=== PATIENT | female | born 1945 | race Caucasian/White ===

== ENCOUNTER 2016-11-28 21:39 | Emergency (ER) | payer MEDICARE, MEDICAID ==
[~2016-11-28] VITALS: Ht 157.5 cm; Wt 56.7 kg
[2016-11-28] MEDS ORDERED: FURO20TA4 PO (21:55)
[2016-11-28] MEDS ORDERED: DONE10TA44 PO (21:55)
[2016-11-28] MEDS ORDERED: QUET25TA PO (21:55)
[2016-11-28] MEDS ORDERED: OMEP40CA37 PO (21:55)
[2016-11-28] MEDS ORDERED: LEVE500T20 PO (21:55)
[2016-11-28] MEDS ORDERED: METO25TA6 PO (21:55)
[2016-11-28] MEDS ORDERED: DIVA500T7 PO (21:55)
[2016-11-28] MEDS ORDERED: AZIT250T6 PO (21:55)
[2016-11-28] MEDS ORDERED: CLON0.5T4 PO (21:55)
[2016-11-28 22:46] LABS: BASOPHILS % (AUTO) 0.3 % (0.0-2.0); EOSINOPHILS % (AUTO) 0.3 % (0.0-6.0); HEMATOCRIT 30 % (33-45); HEMOGLOBIN 9.9 g/dL (11.5-14.8); LYMPHOCYTES # (AUTO) 1.9 /CMM (0.8-4.8); LYMPHOCYTES % (AUTO) 36.7 % (20.0-44.0); MEAN CORPUSCULAR HEMOGLOBIN 35 PG (26.0-33.0); MEAN CORPUSCULAR HGB CONC 33 g/dl (31.0-36.0); MEAN CORPUSCULAR VOLUME 108 fL (82-100); MONOCYTES % (AUTO) 19.9 % (2.0-12.0); NEUTROPHILS # (AUTO) 2.2 /CMM (1.8-8.9); NEUTROPHILS % (AUTO) 42.8 % (43.0-81.0); PLATELET COUNT (AUTO) 106 /CMM (150-450); RDW COEFFICIENT OF VARIATION 15.8 (11.5-15.0); RED BLOOD CELL COUNT(AUTO) 2.81 MIL/uL (4.0-5.2); WHITE BLOOD COUNT (AUTO) 5.2 K/uL (4.3-11.0)
[2016-11-28 22:54] LABS: APPEARANCE,URINE SL CLOUDY (CLEAR); BILIRUBIN,URINE NEGATIVE (NEGATIVE); BLOOD, URINE NEGATIVE Ery/uL (NEGATIVE); COLOR,URINE YELLOW (YELLOW); KETONES,URINE NEGATIVE (NEGATIVE); LEUKOCYTE ESTERASE ,URINE TRACE (NEGATIVE); NITRITE, URINE POSITIVE (NEGATIVE); PROTEIN,URINE TRACE mg/dl (NEGATIVE); UGLUCOSE NEGATIVE (NEGATIVE); UROBILINOGEN,URINE 0.2 EU/dL (0.2)
[2016-11-28 22:55] LABS: SERUM AMMONIA 29 umol/L (11-32)
[2016-11-28 22:57] LABS: CALCIUM, SERUM 8.2 mg/dL (8.5-10.1); CARBON DIOXIDE 30 mmol/L (21-32); CHLORIDE 110 mmol/L (98-107); CREATININE 0.8 mg/dL (0.6-1.3); GFR 71 mL/min (>60); GLUCOSE 99 mg/dL (74-106); POTASSIUM 4.3 mmol/L (3.5-5.1); SODIUM SERUM 144 mmol/L (136-145); UREA NITROGEN, BLOOD 21 mg/dL (7-18)
[2016-11-28 22:58] LABS: RBC,URINE 0-2 /HPF (0-2)
[2016-11-28 22:59] LABS: ADD URINE CULTURE YES; BACTERIA,URINE 3+ /HPF (None Seen); MUCUS,URINE Moderate /LPF (None Seen); SQUAMOUS EPITHELIAL CELL,UR Few /HPF (None Seen); WBC,URINE 20-25 /HPF (0-3)
[2016-11-28 23:00] LABS: INR 0.97 (0.87-1.13); PROTHROMBIN TIME 10.4 SECS (9.5-12.7)
[2016-11-28 23:13] LABS: CANNABINOID, URINE NEGATIVE (NEGATIVE); PHENCYCLIDINE SCREEN,URINE NEGATIVE (NEGATIVE)
[2016-11-28 23:22] LABS: ACETAMINOPHEN 0 ug/ml (10-30); ALANINE AMINOTRANSFERASE 14 U/L (12-78); ALBUMIN 2.8 g/dL (3.4-5.0); ALKALINE PHOSPHATASE 65 U/L (46-116); ASPARTATE AMINOTRANSFERASE 15 U/L (15-37); BILIRUBIN,TOTAL 0.2 mg/dL (0.2-1.0); TROPONIN I < 0.017 ng/mL (0.00-0.056)
[2016-11-28] MEDS ORDERED: LEVOFLOXACIN (500MG) 500 MG TABLET ONE (23:52)
[2016-11-29] MEDS: LEVOFLOXACIN (500MG) 500 MG TABLET PO ONE (00:02)
[2016-11-29 00:36] VITALS: BP 113/72
[2016-11-29 00:36] LABS: LYMPHOCYTES % (MANUAL) 50 % (16-48); MONOCYTES % (MANUAL) 18 % (0-11.0); NEUTROPHILS % (MANUAL) 32 (42-76); PLATELET ESTIMATE DECREASED
[2016-11-29 00:37] LABS: ANISOCYTOSIS 1+
== END 2016-11-29 00:38 | disposition home or self-care (01) ==
LOC: ER 21:45
DX: N30.90 Cystitis, unspecified without hematuria (principal); F03.90 Unspecified dementia, unspecified severity, without behavioral disturbance, psychotic disturbance, mood disturbance, and anxiety; G40.909 Epilepsy, unspecified, not intractable, without status epilepticus; I48.91 Unspecified atrial fibrillation; I63.9 Cerebral infarction, unspecified; J90 Pleural effusion, not elsewhere classified; R41.82 Altered mental status, unspecified
CPT/HCPCS: 36415; 70450; 71010; 80048; 80076; 80164; 80305; 80329; 81001; 82140; 82962; 84484; 85025; 85730; 87077; 87086; 87186; 93005; 99285; A4606; G0480; 81000-TC; G6039-TC; Z7610

== ENCOUNTER 2017-09-29 02:52 | Inpatient (IN) | payer MEDICARE, MEDICAID ==
[~2017-09-29] VITALS: Ht 162.6 cm; Wt 73.6 kg
[~2017-09-29 02:52] MED LIST: AZIT250T13 PO; CLON0.5T4 PO; DIVA500T7 PO; DONE10TA44 PO; FURO20TA4 PO; LEVE500T20 PO; METO25TA6 PO; OMEP40CA37 PO; QUET25TA PO
[2017-09-29] MEDS ORDERED: ACETAMINOPHEN 650 MG/20.3 ML UDC ONE (03:05)
[2017-09-29] MEDS ORDERED: CEFTRIAXONE 1 G in IV D5W 50 ML IV ONE (03:30)
[2017-09-29] MEDS ORDERED: CEFTRIAXONE 1GM BAG (ER ONLY) 50 ML IV ONE (03:50)
[2017-09-29 03:57] LABS: BASOPHILS % (AUTO) 0.1 % (0.0-2.0); HEMATOCRIT 32 % (33-45); HEMOGLOBIN 10.2 g/dL (11.5-14.8); LYMPHOCYTES # (AUTO) 0.6 /CMM (0.8-4.8); LYMPHOCYTES % (AUTO) 6.6 % (20.0-44.0); MEAN CORPUSCULAR HEMOGLOBIN 35 PG (26.0-33.0); MEAN CORPUSCULAR HGB CONC 32 g/dl (31.0-36.0); MEAN CORPUSCULAR VOLUME 108 fL (82-100); MONOCYTES # (AUTO) 2.3 /CMM (0.1-1.30); NEUTROPHILS # (AUTO) 6.3 /CMM (1.8-8.9); NEUTROPHILS % (AUTO) 68.3 % (43.0-81.0); PLATELET COUNT (AUTO) 67 /CMM (150-450); RDW COEFFICIENT OF VARIATION 17.1 (11.5-15.0); RED BLOOD CELL COUNT(AUTO) 2.95 MIL/uL (4.0-5.2); WHITE BLOOD COUNT (AUTO) 9.3 K/uL (4.3-11.0)
[2017-09-29] MEDS ORDERED: ACETAMINOPHEN 650 MG/SUPP.RECT RC ONE ×2 (04:00→04:04)
[2017-09-29 04:06] LABS: CALCIUM, SERUM 8.6 mg/dL (8.5-10.1); CARBON DIOXIDE 27 mmol/L (21-32); CHLORIDE 116 mmol/L (98-107); CREATININE 1.4 mg/dL (0.6-1.3); GLUCOSE 133 mg/dL (74-106); SODIUM SERUM 153 mmol/L (136-145); UREA NITROGEN, BLOOD 39 mg/dL (7-18)
[2017-09-29 04:09] LABS: INR 1.08 (0.87-1.13)
[2017-09-29 04:16] LABS: TROPONIN I 0.725 ng/mL (0.00-0.056)
[2017-09-29 04:20] LABS: ALANINE AMINOTRANSFERASE 20 U/L (12-78); ALBUMIN 2.8 g/dL (3.4-5.0); ALKALINE PHOSPHATASE 73 U/L (46-116); ASPARTATE AMINOTRANSFERASE 40 U/L (15-37); B-TYPE NATRIURETIC PEPTIDE 19143 PG/ML (0-125); BILIRUBIN,DIRECT 0.1 mg/dL (0.0-0.2); BILIRUBIN,TOTAL 0.6 mg/dL (0.2-1.0); TOTAL PROTEIN, SERUM 7.6 g/dL (6.4-8.2)
[2017-09-29] MEDS ORDERED: LEVOFLOXACIN 750 MG /D5W 150ML 150 ML IV ONE (04:29)
[2017-09-29] MEDS ORDERED: LEVOFLOXACIN 750 MG /D5W 150ML PIGGYBACK IV ONE (04:30)
[2017-09-29] MEDS ORDERED: ACETAMINOPHEN 650 MG/20.3 ML UDC PO ONE (04:30)
[2017-09-29 04:31] LABS: BAND % (MANUAL) 2 % (0.0-5.0); LYMPHOCYTES % (MANUAL) 10 % (16-48); MONOCYTES % (MANUAL) 21 % (0-11.0); NEUTROPHILS % (MANUAL) 67 (42-76)
[2017-09-29] MEDS ORDERED: ASPIRIN 300 MG/SUPP.RECT RC ONE ×2 (05:19→05:30)
[2017-09-29] MEDS ORDERED: IV NS 0.9% 1,000 ML BAG IV ONE (05:30)
[2017-09-29 05:31] LABS: APPEARANCE,URINE CLOUDY (CLEAR); BILIRUBIN,URINE 1+ (NEGATIVE); BLOOD, URINE 3+ Ery/uL (NEGATIVE); COLOR,URINE DARK YELLO (YELLOW); KETONES,URINE TRACE (NEGATIVE); LEUKOCYTE ESTERASE ,URINE 2+ (NEGATIVE); NITRITE, URINE POSITIVE (NEGATIVE); PROTEIN,URINE 3+ mg/dl (NEGATIVE); UGLUCOSE NEGATIVE (NEGATIVE); UROBILINOGEN,URINE 0.2 EU/dL (0.2)
[2017-09-29 05:37] LABS: BACTERIA,URINE Few /HPF (None Seen); SQUAMOUS EPITHELIAL CELL,UR Few /HPF (None Seen); WBC,URINE 21-50 /HPF (0-3)
[2017-09-29 07:10] VITALS: BP 115/74
[2017-09-29] MEDS ORDERED: ACETAMINOPHEN 650 MG/SUPP.RECT RC PRN (07:30)
[2017-09-29] MEDS ORDERED: Z GUARD REMEDY 2 OZ OINT TP PRN (07:30)
[2017-09-29] MEDS ORDERED: IV D5/ 0.9% NACL 1,000 ML IV PRN (07:30)
[2017-09-29] MEDS ORDERED: ALBUTEROL FS 2.5 MG/3 ML VIAL.NEB NEB PRN (07:30)
[2017-09-29] MEDS ORDERED: ENOXAPARIN SODIUM 30 MG/0.3 ML DISP.SYRIN SQ SCH (07:30)
[2017-09-29] MEDS ORDERED: MORPHINE SULFATE INJ 4 MG/ML DISP.SYRIN IV PRN (07:30)
[2017-09-29] MEDS ORDERED: ONDANSETRON HCL/PF 4 MG/2 ML VIAL IVP PRN (07:30)
[2017-09-29] MEDS ORDERED: DIVA125T3 PO (07:56)
[2017-09-29] MEDS ORDERED: GUAI118L27 PO (07:56)
[2017-09-29 08:00] VITALS: BP 124/62
[2017-09-29 08:43] LABS: BASOPHILS % (AUTO) 0.1 % (0.0-2.0); HEMATOCRIT 28 % (33-45); HEMOGLOBIN 9.1 g/dL (11.5-14.8); LYMPHOCYTES # (AUTO) 0.8 /CMM (0.8-4.8); MEAN CORPUSCULAR HEMOGLOBIN 35 PG (26.0-33.0); MEAN CORPUSCULAR HGB CONC 33 g/dl (31.0-36.0); MEAN CORPUSCULAR VOLUME 108 fL (82-100); MONOCYTES # (AUTO) 1.3 /CMM (0.1-1.30); MONOCYTES % (AUTO) 18.3 % (2.0-12.0); NEUTROPHILS # (AUTO) 5.1 /CMM (1.8-8.9); NEUTROPHILS % (AUTO) 70.6 % (43.0-81.0); PLATELET COUNT (AUTO) 58 /CMM (150-450); RDW COEFFICIENT OF VARIATION 17.2 (11.5-15.0); RED BLOOD CELL COUNT(AUTO) 2.59 MIL/uL (4.0-5.2); WHITE BLOOD COUNT (AUTO) 7.2 K/uL (4.3-11.0)
[2017-09-29 08:45] LABS: CARBON DIOXIDE 29 mmol/L (21-32); CHLORIDE 118 mmol/L (98-107); CREATININE 1.3 mg/dL (0.6-1.3); GLUCOSE 104 mg/dL (74-106); POTASSIUM 4.1 mmol/L (3.5-5.1); SODIUM SERUM 154 mmol/L (136-145); UREA NITROGEN, BLOOD 38 mg/dL (7-18)
[2017-09-29 08:56] LABS: ALANINE AMINOTRANSFERASE 17 U/L (12-78); ALBUMIN 2.2 g/dL (3.4-5.0); ALKALINE PHOSPHATASE 61 U/L (46-116); ASPARTATE AMINOTRANSFERASE 35 U/L (15-37); BILIRUBIN,TOTAL 0.3 mg/dL (0.2-1.0); MAGNESIUM 2.1 mg/dL (1.8-2.4); PHOSPHORUS 3.2 mg/dL (2.5-4.9)
[2017-09-29 08:57] LABS: TOTAL PROTEIN, SERUM 6.7 g/dL (6.4-8.2)
[2017-09-29] MEDS ORDERED: FUROSEMIDE 20 MG/2 ML VIAL IV SCH (09:00)
[2017-09-29] MEDS: LEVETIRACETAM (500MG) 500 MG in IV NS 0.9% 100 ML IV SCH ×2 (09:14→21:34)
[2017-09-29] MEDS: VANCOMYCIN 1 GM in IV D5W 250 ML IV SCH (10:11)
[2017-09-29] MEDS: FAMOTIDINE/PF INJ 20 MG/2 ML VIAL IV SCH (10:12)
[2017-09-29 11:17] LABS: BAND % (MANUAL) 4 % (0.0-5.0); LYMPHOCYTES % (MANUAL) 12 % (16-48); MONOCYTES % (MANUAL) 20 % (0-11.0); NEUTROPHILS % (MANUAL) 64 (42-76)
[2017-09-29 11:57] LABS: TROPONIN I 0.429 ng/mL (0.00-0.056)
[2017-09-29 12:00] VITALS: BP 118/72
[2017-09-29] MEDS ORDERED: PIPERACILLIN /TAZOBACTAM 3.375 G in IV D5W 100 ML IV SCH (12:00)
[2017-09-29] MEDS: Potassium Chloride 10 MEQ in IV D5W 1,000 ML IV SCH (12:40)
[2017-09-29] MEDS: PIPERACILLIN /TAZOBACTAM 3.375 G in IV NS 0.9% 50 ML IV SCH ×2 (13:26→17:09)
[2017-09-29] MEDS ORDERED: FEE PK DOSING 1 MIN EA MC ONE (14:10)
[2017-09-29 16:00] VITALS: BP 122/53
[2017-09-29 20:00] VITALS: BP 106/61
[2017-09-30] VITALS: BP 137/53
[2017-09-30] MEDS: PIPERACILLIN /TAZOBACTAM 3.375 G in IV NS 0.9% 50 ML IV SCH ×4 (00:02→17:25)
[2017-09-30] MEDS: Potassium Chloride 10 MEQ in IV D5W 1,000 ML IV SCH (03:47)
[2017-09-30] MEDS: VANCOMYCIN 1 GM in IV D5W 250 ML IV SCH ×2 (03:47→23:06)
[2017-09-30 04:00] VITALS: BP 99/60
[2017-09-30] MEDS: LEVOFLOXACIN 250 MG /D5W 50 ML 250 MG in PREMIX 1 EA IV SCH (06:49)
[2017-09-30 06:57] LABS: CALCIUM, SERUM 7.3 mg/dL (8.5-10.1); CARBON DIOXIDE 25 mmol/L (21-32); CHLORIDE 109 mmol/L (98-107); CREATININE 1.1 mg/dL (0.6-1.3); GLUCOSE 131 mg/dL (74-106); POTASSIUM 3.5 mmol/L (3.5-5.1); SODIUM SERUM 144 mmol/L (136-145); UREA NITROGEN, BLOOD 26 mg/dL (7-18)
[2017-09-30 08:00] VITALS: BP 104/62
[2017-09-30] MEDS: FAMOTIDINE/PF INJ 20 MG/2 ML VIAL IV SCH (08:34)
[2017-09-30] MEDS: ASPIRIN 300 MG/SUPP.RECT RC SCH (08:34)
[2017-09-30] MEDS: LEVETIRACETAM (500MG) 500 MG in IV NS 0.9% 100 ML IV SCH ×2 (08:34→21:36)
[2017-09-30] MEDS ORDERED: Potassium Chloride 10 MEQ in IV D5W 1,000 ML IV PRN (10:14)
[2017-09-30 12:00] VITALS: BP 99/60
[2017-09-30] MEDS ORDERED: clonazePAM 0.5 MG TABLET PO PRN (13:00)
[2017-09-30] MEDS: DIVALPROEX SODIUM 125 MG TABLET.DR PO SCH ×2 (13:16→16:45)
[2017-09-30] MEDS: QUETIAPINE FUMARATE 25 MG TABLET PO SCH ×2 (13:16→16:45)
[2017-09-30 16:00] VITALS: BP 108/55
[2017-09-30] MEDS: LACTOBACILLUS RHAMNOSUS GG 1 EACH CAP.SPRINK PO SCH (16:45)
[2017-09-30] MEDS: MUPIROCIN OINT 2% 22 GM TUBE SCH ×2 (16:47→21:39)
[2017-09-30 20:00] VITALS: BP 117/70
[2017-10-01] VITALS: BP 112/76
[2017-10-01] MEDS: PIPERACILLIN /TAZOBACTAM 3.375 G in IV NS 0.9% 50 ML IV SCH ×3 (00:25→11:45)
[2017-10-01 04:00] VITALS: BP 116/60
[2017-10-01 07:58] LABS: BASOPHILS % (AUTO) 0.2 % (0.0-2.0); EOSINOPHILS % (AUTO) 0.1 % (0.0-6.0); HEMATOCRIT 27 % (33-45); LYMPHOCYTES # (AUTO) 0.9 /CMM (0.8-4.8); LYMPHOCYTES % (AUTO) 11.6 % (20.0-44.0); MEAN CORPUSCULAR HEMOGLOBIN 35 PG (26.0-33.0); MEAN CORPUSCULAR HGB CONC 33 g/dl (31.0-36.0); MEAN CORPUSCULAR VOLUME 107 fL (82-100); MONOCYTES # (AUTO) 1.6 /CMM (0.1-1.30); MONOCYTES % (AUTO) 20.8 % (2.0-12.0); NEUTROPHILS # (AUTO) 5.2 /CMM (1.8-8.9); NEUTROPHILS % (AUTO) 67.3 % (43.0-81.0); PLATELET COUNT (AUTO) 51 /CMM (150-450); RDW COEFFICIENT OF VARIATION 16.7 (11.5-15.0); RED BLOOD CELL COUNT(AUTO) 2.58 MIL/uL (4.0-5.2); WHITE BLOOD COUNT (AUTO) 7.7 K/uL (4.3-11.0)
[2017-10-01 08:00] VITALS: BP 98/57
[2017-10-01 08:10] LABS: CALCIUM, SERUM 7.5 mg/dL (8.5-10.1); CARBON DIOXIDE 27 mmol/L (21-32); CHLORIDE 106 mmol/L (98-107); GLUCOSE 110 mg/dL (74-106); MAGNESIUM 1.8 mg/dL (1.8-2.4); POTASSIUM 3.6 mmol/L (3.5-5.1); SODIUM SERUM 141 mmol/L (136-145); UREA NITROGEN, BLOOD 15 mg/dL (7-18)
[2017-10-01] MEDS: LEVETIRACETAM SOL (5 ML) 100 MG/ML UDC PO SCH ×2 (08:54→22:09)
[2017-10-01] MEDS: LEVOFLOXACIN 250 MG /D5W 50 ML 250 MG in PREMIX 1 EA IV SCH (08:54)
[2017-10-01] MEDS: DIVALPROEX SODIUM 125 MG TABLET.DR PO SCH ×3 (08:55→17:30)
[2017-10-01] MEDS: LACTOBACILLUS RHAMNOSUS GG 1 EACH CAP.SPRINK PO SCH ×2 (08:55→17:29)
[2017-10-01] MEDS: QUETIAPINE FUMARATE 25 MG TABLET PO SCH ×2 (08:55→17:30)
[2017-10-01] MEDS: ASPIRIN 300 MG/SUPP.RECT RC SCH (08:55)
[2017-10-01] MEDS: MUPIROCIN OINT 2% 22 GM TUBE SCH ×2 (08:56→22:08)
[2017-10-01 09:18] LABS: LYMPHOCYTES % (MANUAL) 11 % (16-48); MONOCYTES % (MANUAL) 25 % (0-11.0); NEUTROPHILS % (MANUAL) 64 (42-76)
[2017-10-01] MEDS: FAMOTIDINE/PF INJ 20 MG/2 ML VIAL IV SCH (09:53)
[2017-10-01 12:00] VITALS: BP 104/56
[2017-10-01 16:00] VITALS: BP 126/51
[2017-10-01 20:00] VITALS: BP 120/58
[2017-10-02] VITALS: BP 119/54
[2017-10-02 04:00] VITALS: BP 103/50
[2017-10-02] MEDS: LEVOFLOXACIN 250 MG /D5W 50 ML 250 MG in PREMIX 1 EA IV SCH (06:41)
[2017-10-02 07:38] LABS: CALCIUM, SERUM 7.9 mg/dL (8.5-10.1); CARBON DIOXIDE 27 mmol/L (21-32); CHLORIDE 110 mmol/L (98-107); CREATININE 0.9 mg/dL (0.6-1.3); GLUCOSE 98 mg/dL (74-106); POTASSIUM 4.1 mmol/L (3.5-5.1); SODIUM SERUM 145 mmol/L (136-145); UREA NITROGEN, BLOOD 14 mg/dL (7-18)
[2017-10-02 08:00] VITALS: BP 103/53
[2017-10-02] MEDS: FAMOTIDINE/PF INJ 20 MG/2 ML VIAL IV SCH (09:38)
[2017-10-02] MEDS: MUPIROCIN OINT 2% 22 GM TUBE SCH ×2 (09:38→22:38)
[2017-10-02] MEDS: LACTOBACILLUS RHAMNOSUS GG 1 EACH CAP.SPRINK PO SCH ×2 (09:39→17:52)
[2017-10-02] MEDS: DIVALPROEX SODIUM 125 MG TABLET.DR PO SCH ×3 (09:39→17:53)
[2017-10-02] MEDS: QUETIAPINE FUMARATE 25 MG TABLET PO SCH ×2 (09:39→17:53)
[2017-10-02] MEDS: LEVETIRACETAM SOL (5 ML) 100 MG/ML UDC PO SCH ×2 (09:39→22:37)
[2017-10-02] MEDS: ASPIRIN 300 MG/SUPP.RECT RC SCH (09:39)
[2017-10-02 12:00] VITALS: BP 91/60
[2017-10-02 16:00] VITALS: BP 110/55
[2017-10-02 20:00] VITALS: BP 125/66
[2017-10-03 05:29] VITALS: BP 108/54
[2017-10-03 08:00] VITALS: BP 118/68
[2017-10-03] MEDS ORDERED: LEVOFLOXACIN (250MG) 250 MG TABLET PO SCH (08:00)
[2017-10-03 08:36] LABS: BASOPHILS % (AUTO) 0.3 % (0.0-2.0); EOSINOPHILS % (AUTO) 0.1 % (0.0-6.0); HEMATOCRIT 29 % (33-45); HEMOGLOBIN 9.6 g/dL (11.5-14.8); LYMPHOCYTES # (AUTO) 1.1 /CMM (0.8-4.8); LYMPHOCYTES % (AUTO) 15.6 % (20.0-44.0); MEAN CORPUSCULAR HEMOGLOBIN 35 PG (26.0-33.0); MEAN CORPUSCULAR HGB CONC 33 g/dl (31.0-36.0); MEAN CORPUSCULAR VOLUME 106 fL (82-100); MONOCYTES # (AUTO) 1.1 /CMM (0.1-1.30); MONOCYTES % (AUTO) 15.7 % (2.0-12.0); NEUTROPHILS # (AUTO) 4.9 /CMM (1.8-8.9); NEUTROPHILS % (AUTO) 68.3 % (43.0-81.0); PLATELET COUNT (AUTO) 64 /CMM (150-450); RDW COEFFICIENT OF VARIATION 16.9 (11.5-15.0); RED BLOOD CELL COUNT(AUTO) 2.72 MIL/uL (4.0-5.2); WHITE BLOOD COUNT (AUTO) 7.2 K/uL (4.3-11.0)
[2017-10-03 08:46] LABS: CALCIUM, SERUM 8.1 mg/dL (8.5-10.1); CARBON DIOXIDE 30 mmol/L (21-32); CHLORIDE 111 mmol/L (98-107); CREATININE 0.8 mg/dL (0.6-1.3); GLUCOSE 120 mg/dL (74-106); POTASSIUM 3.8 mmol/L (3.5-5.1); SODIUM SERUM 148 mmol/L (136-145); UREA NITROGEN, BLOOD 16 mg/dL (7-18)
[2017-10-03 09:23] LABS: LYMPHOCYTES % (MANUAL) 15 % (16-48); MONOCYTES % (MANUAL) 22 % (0-11.0); NEUTROPHILS % (MANUAL) 63 (42-76)
[2017-10-03] MEDS: LACTOBACILLUS RHAMNOSUS GG 1 EACH CAP.SPRINK PO SCH (09:56)
[2017-10-03] MEDS: LEVETIRACETAM SOL (5 ML) 100 MG/ML UDC PO SCH (09:56)
[2017-10-03] MEDS: ASPIRIN 300 MG/SUPP.RECT RC SCH (09:56)
[2017-10-03] MEDS: DIVALPROEX SODIUM 125 MG TABLET.DR PO SCH (09:57)
[2017-10-03] MEDS: FAMOTIDINE/PF INJ 20 MG/2 ML VIAL IV SCH (09:57)
[2017-10-03] MEDS: QUETIAPINE FUMARATE 25 MG TABLET PO SCH (09:57)
[2017-10-03] MEDS: MUPIROCIN OINT 2% 22 GM TUBE SCH (09:58)
== END 2017-10-03 14:49 | DRG 871 ==
LOC: ER 02:53 → TELE1 06:20 → TELE-TD 06:45 → TELE1 09-30 12:53 → MEDSG1 10-02 11:32
PROVIDERS: ADMIT Legal Medicine; ATTEND Legal Medicine
PROC: 05HY33Z Insertion of Infusion Device into Upper Vein, Percutaneous Approach (ICD-10-PCS; principal; 2017-09-29)
DX: A41.51 Sepsis due to Escherichia coli [E. coli] (principal); G93.40 Encephalopathy, unspecified; I21.A1 Myocardial infarction type 2; N17.9 Acute kidney failure, unspecified; J18.9 Pneumonia, unspecified organism; E87.0 Hyperosmolality and hypernatremia; D69.6 Thrombocytopenia, unspecified; G40.409 Other generalized epilepsy and epileptic syndromes, not intractable, without status epilepticus; E86.0 Dehydration; N39.0 Urinary tract infection, site not specified; I48.91 Unspecified atrial fibrillation; F03.90 Unspecified dementia, unspecified severity, without behavioral disturbance, psychotic disturbance, mood disturbance, and anxiety; D46.9 Myelodysplastic syndrome, unspecified; Z95.0 Presence of cardiac pacemaker; I10 Essential (primary) hypertension; R09.02 Hypoxemia
CPT/HCPCS: 36415; 36569; 70450-TC; 71045-TC; 74230-TC; 80048-TC; 80053-TC; 80076-TC; 81000-TC; 82272-TC; 83605-TC; 83735-TC; 83880; 84100-TC; 84484-TC; 85025-TC; 85730-TC; 87040-TC; 87081-TC; 87086-TC; 87186-TC; 92526; 92611-TC; 93307-TC; 94799-TC; A4216; A4606; J0696; J1940; J1953; J1956; J2543; J3370; J3480; J3490; J7030; J7040; J7042; J7060; J7070; Z7610